=== PATIENT | female | born 1980 | race Hispanic/Latino ===

== ENCOUNTER 2018-02-28 14:55 | Outpatient (CLI) | payer BC ==
--- NOTE | 2018-02-28 17:21 | ULT ---
HISTORY: Followup. COMPARISON: Thyroid fine needle aspiration from 02/26/2016. TECHNIQUE: Real-time malhotra-scale and color evaluation of the thyroid was performed. FINDINGS: The right lobe measures 4.7 x 1.5 x 1.6 cm and the left lobe measures 4.5 x 1.5 x 1.4 cm. The isthmu s measures 1 cm in AP dimension. There is a single hypoechoic axcfi-chnw-ammt nodule within the isth mus, measuring up to 1.7 cm, without echogenic foci. IMPRESSION: Slight interval enlargement of the isthmus nodule from the comparison ultrasound-guided biopsy. Recommend correlation with the prior biopsy pathology report. POS: [facility]
== END 2018-02-28 14:56 | disposition home or self-care (01) ==
LOC: BICMAMMO 14:55
PROVIDERS: ATTEND Nurse Practitioner Family
DX: Z12.31 Encounter for screening mammogram for malignant neoplasm of breast (principal); E04.9 Nontoxic goiter, unspecified; E04.1 Nontoxic single thyroid nodule
CPT/HCPCS: 76536; 77063; 77067

== ENCOUNTER 2018-10-03 07:55 | Outpatient (CLI) | payer BC ==
--- NOTE | 2018-10-03 08:40 | ULT ---
ULTRASOUND ABDOMEN: HISTORY: Fatty liver, elevated liver enzymes FINDINGS: The spleen, gallbladder, kidneys and visualized portions of the aorta and IVC appear normal. The panc reas was not well visualized due to overlying bowel gas. The liver demonstrates increased echogenicity consistent with fatty infiltration. No focal mass or intrahepatic ductal dilatation is s een. The common duct measures 5mm in diameter. No free fluid is seen. IMPRESSION: 1. Fatty liver 2. No evidence of cholelithiasis
== END 2018-10-03 07:56 | disposition home or self-care (01) ==
LOC: BICULT 07:55
PROVIDERS: ATTEND Nurse Practitioner Family
DX: K76.0 Fatty (change of) liver, not elsewhere classified (principal); R94.5 Abnormal results of liver function studies; E11.9 Type 2 diabetes mellitus without complications; R93.421 Abnormal radiologic findings on diagnostic imaging of right kidney
CPT/HCPCS: 76700

== ENCOUNTER 2019-05-19 10:02 | Outpatient (CLI) | payer BC ==
--- NOTE | 2019-05-19 10:35 | ULT ---
US Gallbladder RUQ HISTORY: Elevated LFTs. COMPARISON: 10/03/2018 study. FINDINGS: Real-time imaging of the right upper quadrant was performed. This shows a normal-appearing gallbladder. No gallstones. The common duct is 5 to 6 mm. Liver is of mild increased echogenicity. It measures 18 cm in length. The pancreas is obscured. Right kidney is normal in size and not obstructed. IMPRESSION: Fatty change of the liver.
--- NOTE | 2019-05-19 11:18 | MMO ---
Bilateral MAMMO Bilat Screen [facility]. CLINICAL HISTORY: Patient is 39 years old and is seen for screening. The patient has no family history of breast cancer. The patient has no personal history of cancer. VIEWS: The views performed were: bilateral craniocaudal with tomosynthesis and bilateral mediolateral oblique with tomosynthesis. FILMS COMPARED: The present examination has been compared to prior imaging studies performed at [facility] on 03/12/2010 and 02/28/2018. This study has been interpreted with the assistance of computer-aided detection. MAMMOGRAM FINDINGS: There are scattered fibroglandular densities. There are no suspicious masses, suspicious calcifications, or new areas of architectural distortion. IMPRESSION: THERE IS NO MAMMOGRAPHIC EVIDENCE OF MALIGNANCY. A ROUTINE FOLLOW-UP MAMMOGRAM IN 1 YEAR IS RECOMMENDED. THE RESULTS OF THIS EXAM WERE SENT TO THE PATIENT. ACR BI-RADS Category 1 - Negative MAMMOGRAPHY NOTE: 1. A negative mammogram report should not delay a biopsy if a dominant of clinically suspicious mass is present. 2. Approximately 10% to 15% of breast cancers are not detected by mammography. 3. Adenosis and dense breasts may obscure an underlying neoplasm. Reported by: LUIS FERNANDO PLUNKETT MD Electonically Signed: [id number]
--- NOTE | 2019-05-19 11:34 | ULT ---
THYROID SCAN AND UPTAKE: HISTORY: Thyroid nodule. COMPARISON: 02/28/2018 study. FINDINGS: Real-time imaging of the right and left lobes of the gland were performed. The right lobe measures 1 .4 x 1.9 x 4.6 cm and the left lobe 1.6 x 1.5 x 4.6 cm. A solid nodule in the isthmus region is 1.7 cm in size and appears stable. No new nodules identified. IMPRESSION: Stable thyroid nodule within the isthmus of the gland. POS: [facility]
== END 2019-05-19 10:03 | disposition home or self-care (01) ==
LOC: BICULT 10:02
PROVIDERS: ATTEND Nurse Practitioner Family
DX: Z12.31 Encounter for screening mammogram for malignant neoplasm of breast (principal); E04.9 Nontoxic goiter, unspecified; R94.5 Abnormal results of liver function studies; K76.0 Fatty (change of) liver, not elsewhere classified; E04.1 Nontoxic single thyroid nodule
CPT/HCPCS: 76536; 76705; 77063; 77067

== ENCOUNTER 2020-09-18 08:05 | Outpatient (CLI) | payer BC | END 2020-09-18 08:06 | disposition home or self-care (01) | LOC: BICULT 08:05 | PROVIDERS: ATTEND Orthopaedic Surgery | DX: K76.0 Fatty (change of) liver, not elsewhere classified (principal); E04.9 Nontoxic goiter, unspecified; R16.0 Hepatomegaly, not elsewhere classified; R93.2 Abnormal findings on diagnostic imaging of liver and biliary tract | CPT/HCPCS: 76536; 76705 ==

== ENCOUNTER 2020-09-18 08:40 | Outpatient (CLI) | payer BC | END 2020-09-18 08:41 | disposition home or self-care (01) | LOC: BICMAMMO 08:40 | PROVIDERS: ATTEND Nurse Practitioner Family | DX: Z12.31 Encounter for screening mammogram for malignant neoplasm of breast (principal) | CPT/HCPCS: 77063; 77067 ==

== ENCOUNTER 2021-10-06 07:24 | Outpatient (CLI) | payer BC | END 2021-10-06 07:25 | disposition home or self-care (01) | LOC: BICULT 07:24 | PROVIDERS: ATTEND Family Medicine | DX: Z12.31 Encounter for screening mammogram for malignant neoplasm of breast (principal); E04.1 Nontoxic single thyroid nodule | CPT/HCPCS: 76536; 77063; 77067 ==

== ENCOUNTER 2022-10-29 14:05 | Outpatient (CLI) | payer BC | END 2022-10-29 14:06 | disposition home or self-care (01) | LOC: BICMAMMO 14:05 | PROVIDERS: ATTEND Internal Medicine | DX: Z12.31 Encounter for screening mammogram for malignant neoplasm of breast (principal) | CPT/HCPCS: 77063; 77067 ==

== ENCOUNTER 2024-12-26 12:10 | Day surgery (SDC) | payer BC ==
[2024-12-26] MEDS ORDERED: Lidocaine 1% w/Epinephrine 1:100K 20 ML VIAL ONE (13:00)
[2024-12-26] MEDS ORDERED: Sodium Bicarbonate 2.5 MEQ/5 ML SDV ONE (13:00)
== END 2024-12-26 15:00 | disposition home or self-care (01) ==
LOC: ULT 12:10
PROVIDERS: ATTEND Otolaryngology Plastic Surgery within the Head & Neck
PROC: 0G9K3ZX Drainage of Thyroid Gland, Percutaneous Approach, Diagnostic (ICD-10-PCS; principal; 2024-12-26)
DX: E04.1 Nontoxic single thyroid nodule (principal); E11.9 Type 2 diabetes mellitus without complications; E78.00 Pure hypercholesterolemia, unspecified; J30.9 Allergic rhinitis, unspecified; J34.3 Hypertrophy of nasal turbinates; Z87.59 Personal history of other complications of pregnancy, childbirth and the puerperium; Z90.710 Acquired absence of both cervix and uterus; Z88.2 Allergy status to sulfonamides; Z79.84 Long term (current) use of oral hypoglycemic drugs; Z79.899 Other long term (current) drug therapy
CPT/HCPCS: 10005; 88173